=== PATIENT | female | born 2000 | race Caucasian/White ===

== ENCOUNTER 2020-02-01 07:47 | Emergency (ER) | payer SELFPAY ==
--- NOTE | ~2020-02-01 | US_ITS ---
EXAMINATION: US abdomen limited DATE: 02/01/2020 08:54 INDICATION: Epigastric abdominal pain TECHNIQUE: Multiple grayscale and Doppler ultrasound images of the abdomen were obtained. COMPARISON: None available FINDINGS: The head, body, and tail of the pancreas are normal. The liver is normal with normal echoge nicity and echotexture. No surface nodularity. Normal hepatopetal flow in the main portal vein. The g allbladder is normal with no abnormal wall thickening, pericholecystic fluid or stones. The normal co mmon bile duct measures 2 mm. There was no sonographic Perez sign. IMPRESSION: 1. Normal sonographic study of the gallbladder. Reviewed, dictated and finalized at location A.
[2020-02-01 07:51] VITALS: BP 125/93; PULSE 102; RESP 18; TEMP 36.2; O2SAT 98
--- NOTE | 2020-02-01 08:12 | ED.ABDPAIN ---
HPI - Abdominal Pain General Chief Complaint: Abdominal Pain Stated Complaint: abd pain Time Seen by Provider: 02/01/20 08:06 Source: patient and family Mode of arrival: ambulatory Limitations: no limitations History of Present Illness HPI narrative: Patient presents to the ED with her mother for epigastric pain for 4 days. The pain spikes high and then settles down and spikes again. She has had no fever with. She has severe nausea but no vomiting. She has had no diarrhea or constipation. She has not had an illness like this before. Her mother had gallbladder disease and had hers removed. The pain is currently 7 out of 10. 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 Surgical history includes tonsillectomy, adenoidectomy, and bilateral myringotomy tubes. She takes Septra for her acne. She has not had a period in months. She does not have an CAFE COOK. She does not smoke, drink alcohol, or do drugs. MD elicited complaint: abdominal pain Pertinent past history: none Onset (ago): day(s) Pain Consistency: intermittent Location: epigastric Severity: severe Pain scale (0-10): 7 Quality: stabbing Radiation: none Migration to: no migration Exacerbating factors: nothing Relieving factors: nothing Associated symptoms: nausea Treatments prior to arrival: NSAIDs Related Data Patient : No Home Medications Medication Instructions Recorded Confirmed sulfamethoxazole-trimethoprim 160 - 800 tablet PO DAILY 02/01/20 [Bactrim DS] Allergies Allergy/AdvReac Type Severity Reaction Status Date / Time No Known Allergies Allergy Verified 08/08/17 18:08 Review of Systems Review of Systems: Narrative: CONSTITUTIONAL: Denies fever, chills, or sweats. EYES: Denies visual changes, redness, or discharge. ENT: Denies rhinorrhea, congestion, sore throat, or otalgia. CARDIOVASCULAR: Denies chest pain, palpitations, or edema. RESPIRATORY: Denies cough or dyspnea. GASTROINTESTINAL: She has abdominal pain, nausea, but not vomiting, or diarrhea. GENITOURINARY: Denies dysuria or hematuria. SKIN: Denies rash or itching. MUSCULOSKELETAL: Denies back pain, joint pain, or myalgia. NEUROLOGIC: Denies headache, numbness, or weakness. All systems reviewed & are unremarkable except as noted in HPI and below PMFSH Past Medical History Medical History Acne Irregular menses Surgical History Surgical History (Updated 02/01/20 @ 08:16 by Mariela Davis MD) History of adenoidectomy History of myringotomy History of tonsillectomy Social History Social History (Updated 02/01/20 @ 08:16 by Mariela Davis MD) Smoking status: Never smoker Alcohol intake: never Substance use: never Gender identity (if verbalized by the patient): Female Exam Narrative: Exam Narrative: GENERAL: Well-appearing, well-nourished, and in no acute distress. HEAD: Normocephalic, atraumatic. EYES: PERRLA and EOMI. ENT: Nares clear, no rhinorrhea or epistaxis. Mucous membranes moist. NECK: Supple. CHEST: Clear to auscultation. No respiratory distress. HEART: Regular rate and rhythm. No murmur heard. Normal peripheral pulses. ABDOMEN: Soft, nontender, nondistended, normal active bowel sounds. EXTREMITIES: Normal range of motion. No edema. SKIN: Warm, dry, small amount of facial acne. NEURO: No focal deficits. Alert and oriented x3. PSYCH: Normal mood and affect. Course Reevaluation(s) Reevaluation #1: The patient's pain is down to 6 out of 10. I told her that her ultrasound of the gallbladder came back normal. She could follow-up with Dr. Ovalle. I offered admission. The mom is worried that does not have insurance to cover either the admission or follow-up visit. I told him I was comfortable with either but they had to decide. Date: 02/01/20 Time: 09:25 Reevaluation #2: Went back in the room to see whether or not wanted admission. She
[2020-02-01 08:18] LABS: Basophils Percent Auto 0.4 % (0.2-1.2); Eosinophils Absolute Auto 0.1 K/mm3 (0-0.3); Eosinophils Percent Auto 1.1 % (0-4.4); Hematocrit 40.8 % (37.0-47.0); Hemoglobin 14.3 g/dL (12.0-15.0); Immature Granulocyte Absolute 0.03 K/mm3 (0.00-0.031); Immature Granulocyte Percent A 0.5 % (0-0.5); Lymphocytes Absolute Auto 1.27 K/mm3 (0.9-3.2); Lymphocytes Percent Auto 23.2 % (18.3-44.2); Mean Corpuscular Volume 85.7 fl (80-100); Mean Platelet Volume 10.5 fl (7.4-10.4); Monocytes Absolute Auto 0.5 K/mm3 (0.1-0.6); Monocytes Percent Auto 9.3 % (2.6-8.5); Neutrophils Absolute Auto 3.6 K/mm3 (1.3-6.7); Neutrophils Percent Auto 65.5 % (45.5-73.1); Platelet Count Result 228 k/mm3 (150-375); Red Blood Count 4.76 M/mm3 (4.2-5.4); White Blood Count 5.5 K/mm3 (4.5-10.0)
[2020-02-01] MEDS: SODIUM CHLORIDE 0.9% IV 1,000 ML 999 ML IV CONT (08:19)
[2020-02-01] MEDS: ONDANSETRON INJ 4 MG/2 ML VIAL IV PUSH (08:19)
[2020-02-01] MEDS: MORPHINE SULFATE 2 MG/ML INJ IV PUSH (08:19)
[2020-02-01 08:28] LABS: Alanine Aminotransferase 100 U/L (4-35); Albumin Level 4.2 g/dL (3.5-5.1); Alkaline Phosphatase 108 U/L (38-126); Anion Gap 7 mmol/L (8-16); Aspartate Amino Transferase 71 U/L (14-36); Bilirubin,Total 0.6 mg/dL (0.2-1.3); Blood Urea Nitrogen 16 mg/dL (7-17); Calcium 8.4 mg/dL (8.4-10.2); Carbon Dioxide 23 mmol/L (22-30); Chloride 106 mmol/L (98-107); Estimated Glomerular Filt Rate > 60; Glucose 101 mg/dL (65-105); Lipase 39 U/L (23-300); Potassium 3.5 mmol/L (3.4-5.0); Sodium 136 mmol/L (137-145)
[2020-02-01 08:37] LABS: Add Urine Microscopic? YES; Appearance Urine Clear (Clear); Bacteria Urine 1+ /hpf; Bilirubin Urine 1+ (Negative); Blood Urine Negative (Negative); Color Urine Yellow (Yellow); Glucose Urine UA Negative (Negative); Ketones Urine Negative (Negative); Leukocyte Esterase Ur 1+ LEU/UL (Negative); Mucus Urine Heavy /lpf; Nitrate Urine Negative (Negative); Protein Urine 1+ mg/dL (Negative); Squamous Epithelial Cell Urine Many /hpf (Few)
[2020-02-01 08:45] LABS: Specific Grav Ur 1.033 (1.001-1.035)
[2020-02-01] MEDS: MORPHINE SULFATE 4 MG/ML INJ IV PUSH (09:17)
[2020-02-01 09:30] VITALS: BP 126/71; PULSE 89; RESP 12; O2SAT 99
[2020-02-01 10:50] VITALS: BP 124/66; PULSE 88; RESP 14; O2SAT 99
== END 2020-02-01 10:58 | disposition home or self-care (01) ==
PROVIDERS: Emergency Provider Emergency Medicine
DX: R79.89 Other specified abnormal findings of blood chemistry (principal); R10.13 Epigastric pain
CPT/HCPCS: 36415; 76705; 80053; 81001; 81025; 83690; 85025; 87086; 87088; 96361; 96374; 96375; 96376; 99284; J2270; J2405; J7030

== ENCOUNTER 2020-02-03 16:27 | Outpatient (CLI) | payer SELFPAY ==
[2020-02-03 17:39] LABS: Alanine Aminotransferase 225 U/L (4-35); Alkaline Phosphatase 99 U/L (38-126); Anion Gap 6 mmol/L (8-16); Aspartate Amino Transferase 149 U/L (14-36); Bilirubin,Total 0.3 mg/dL (0.2-1.3); Blood Urea Nitrogen 12 mg/dL (7-17); Calcium 8.5 mg/dL (8.4-10.2); Carbon Dioxide 25 mmol/L (22-30); Chloride 107 mmol/L (98-107); Estimated Glomerular Filt Rate > 60; Glucose 89 mg/dL (65-105); Potassium 3.7 mmol/L (3.4-5.0); Sodium 138 mmol/L (137-145)
== END 2020-02-03 16:28 | disposition home or self-care (01) ==
PROVIDERS: Visit Provider Internal Medicine Gastroenterology
DX: K82.9 Disease of gallbladder, unspecified (principal); R74.8 Abnormal levels of other serum enzymes
CPT/HCPCS: 36415; 80053

== ENCOUNTER 2021-08-14 16:01 | Outpatient (CLI) | payer OTHER, SELFPAY ==
--- NOTE | ~2021-08-14 | US_ITS ---
EXAMINATION: US pelvic complete DATE: 08/14/2021 16:39 INDICATION: Left ovarian cyst TECHNIQUE: Multiple transabdominal and endovaginal sonographic images of the pelvis were obtained. COMPARISON: None. FINDINGS: The uterus measures 6.6 x 4.6 x 3.8 cm. The endometrial complex measures 5 mm. The right ov erin measures 2.8 x 3.2 x 2.0 cm. The left ovary measures 2.9 x 2.2 x 2.3 cm. No left ovarian cyst is identified. There is normal vascular flow in the ovaries. There is no free fluid in the pelvis. IMPRESSION: 1. Unremarkable pelvic ultrasound. Reviewed, dictated and finalized at location D. NDS SUPERVISOR
== END 2021-08-14 16:02 | disposition home or self-care (01) ==
LOC: ANHIMG 16:04
PROVIDERS: PCP Registered Nurse; Visit Provider Registered Nurse
DX: N83.202 Unspecified ovarian cyst, left side (principal)
CPT/HCPCS: 76856

== ENCOUNTER 2021-10-18 13:54 | Outpatient (CLI) | payer OTHER, SELFPAY ==
[2021-10-18 14:46] LABS: Alanine Aminotransferase 26 U/L (4-35); Albumin Level 4.4 g/dL (3.5-5.1); Alkaline Phosphatase 73 U/L (38-126); Anion Gap 6 mmol/L (8-16); Aspartate Amino Transferase 26 U/L (14-36); Bilirubin,Total 0.3 mg/dL (0.2-1.3); Blood Urea Nitrogen 16 mg/dL (7-17); Calcium 9.1 mg/dL (8.4-10.2); Carbon Dioxide 27 mmol/L (22-30); Chloride 105 mmol/L (98-107); Glucose 82 mg/dL (65-110); Sodium 138 mmol/L (137-145)
[2021-10-18 15:33] LABS: Estimated Glomerular Filt Rate > 60
[2021-10-18 16:31] LABS: Hepatitis B Surface Antigen Negative (Negative); Iron 146 ug/dL (37-170)
[2021-10-18 16:37] LABS: HAV RESULT Negative (Negative); Hepatitis B Core IgM Result Negative (Negative)
[2021-10-18 16:49] LABS: Hepatitis C Virus Antibody Negative (Negative)
[2021-10-18 16:54] LABS: Percent Iron Saturation 43 % (20-50)
[2021-10-21 10:47] LABS: Tissue Transglutaminase IgG Ab <1.0 U/mL (<15.0)
[2021-10-21 12:41] LABS: Tissue Transglutaminase IgA Ab <1.0 U/mL (<15.0)
[2021-10-22 08:24] LABS: Ceruloplasmin 28 mg/dL (18-53)
[2021-10-23 21:20] LABS: Mitochondrial (M2) Ab (IgG) <=20.0 U (<=20.0)
== END 2021-10-18 13:55 | disposition home or self-care (01) ==
LOC: ANHLAB 13:56
PROVIDERS: PCP Registered Nurse; Visit Provider Internal Medicine Gastroenterology
DX: R74.8 Abnormal levels of other serum enzymes (principal); R10.11 Right upper quadrant pain
CPT/HCPCS: 36415; 80053; 80074; 82104; 82390; 82728; 83516; 83520; 83540; 83550; 86038

== ENCOUNTER 2021-10-26 01:48 | Day surgery (SDC) | payer OTHER, SELFPAY ==
[2021-10-24 14:13] VITALS: BMI 41.1
[2021-10-26 09:33] VITALS: BP 117/78; PULSE 82; RESP 20; TEMP 36.2; O2SAT 100; BMI 42.7
[2021-10-26] MEDS: LACTATED RINGERS 1,000 ML 150 ML IV CONT (09:44)
--- NOTE | 2021-10-26 09:47 | P.PNAN_ITS ---
Anes - Initial Pre Proc Eval Procedure: Operation Date: 10/26/21 10:30 Proposed Procedures p Esophagogastroduodenoscopy - Aly Muñoz MD Date/Time: 10/26/21 09:47 Surgeon: Aly Muñoz MD Pre Op Diagnosis: RUQP Patient Data Age: 21 Gender: F Height: 1.57 m Weight: 106 kg Last Vital Signs Temp 36.2 C L 10/26/21 09:33 Pulse 82 10/26/21 09:33 Resp 20 10/26/21 09:33 BP 117/78 10/26/21 09:33 Pulse Ox 100 10/26/21 09:33 Allergies Allergy/AdvReac Type Severity Reaction Status Date / Time No Known Allergies Allergy Verified 10/26/21 09:32 Home Medications Medication Instructions Recorded Confirmed Type doxycycline hyclate 100 mg capsule 100 mg PO DAILY 10/18/21 10/24/21 History ergocalciferol (vitamin D2) 1,250 1,250 mcg PO WEEKLY 10/18/21 10/24/21 History mcg (50,000 unit) capsule spironolactone 100 mg tablet 100 mg PO DAILY 10/18/21 10/24/21 History Patient hx anesthesia problems: none Family hx anesthesia problems: none Results Review: All pre-operative results and documents have been reviewed as part of the pre-operative evaluation. [facility] Past Medical History Medical History Acne Elevated liver enzymes Epigastric pain Irregular menses Obese body habitus Obesity, morbid, BMI 40.0-49.9 RUQ pain Surgical History Surgical History History of adenoidectomy History of myringotomy History of tonsillectomy Social History Social History Smoking status: Never smoker Alcohol intake: never Substance use: never Substance use type: does not use Living arrangements: with family Gender identity (if verbalized by the patient): Female Spiritual care concerns: No Anes - Eval Final PreProcedure Day of Procedure 10/26/21 09:47 Patient weight: morbidly obese Heart: regular rate and rhythm Lungs: clear to auscultation Airway: Mallampati scale class II Neurological: alert and oriented Last oral intake: >/= 8 hours ASA classification: III Emergent: no Anesthetic plan: proceed Anesthesia type and monitoring: general GIVS and standard monitoring Results Review: All pre-operative results and documents have been reviewed as part of the pre-operative evaluation. Informed Consent: The patient's anesthetic plan and its attendant risks and benefits were discussed with the patient/family/POA. Questions were solicited and answers provided to the satisfaction of the patient/family/POA.
--- NOTE | 2021-10-26 10:08 | WPDHPUPDATE1 ---
History and Physical Update Update Date/Time: 10/26/21 10:08 History and Physical has been reviewed, including an updated exam of the patient. There are NO changes in the patient's condition. Risks, benefits, and alternatives have been discussed and questions answered. Patient agrees to proceed with procedure.
[2021-10-26 10:30] VITALS: BP 96/54; PULSE 77; RESP 20; O2SAT 100
[2021-10-26 10:40] VITALS: BP 103/63; PULSE 77; RESP 20; O2SAT 100
[2021-10-26 10:50] VITALS: BP 99/64; PULSE 81; RESP 21; O2SAT 100
== END 2021-10-26 10:58 | disposition home or self-care (01) ==
PROVIDERS: PCP Registered Nurse; Visit Provider Internal Medicine Gastroenterology
PROC: 0DJ08ZZ Inspection of Upper Intestinal Tract, Via Natural or Artificial Opening Endoscopic (ICD-10-PCS; CPT 43235; principal; 2021-10-26 10:30)
DX: K29.70 Gastritis, unspecified, without bleeding (principal); E66.01 Morbid (severe) obesity due to excess calories; Z68.41 Body mass index [BMI] 40.0-44.9, adult
CPT/HCPCS: 43239; 87081; 88305; J2704; J7120

== ENCOUNTER 2022-09-26 16:57 | Emergency (ER) | payer OTHER, SELFPAY ==
[2022-09-26 17:05] VITALS: BP 134/78; PULSE 100; RESP 16; TEMP 36.5; O2SAT 100
--- NOTE | 2022-09-26 17:32 | ED.BACK ---
HPI - Back Pain/Injury General Chief Complaint: Back Pain/Injury Stated Complaint: lower back pain Time Seen by Provider: 09/26/22 17:10 Source: patient Mode of arrival: ambulatory Limitations: no limitations History of Present Illness HPI Narrative: Patient is a 22-year-old female that presents with low back pain for 3 days. States it is a tight spasming feeling across low back. Denies any pain shooting to legs. Denies any loss of bowel or bladder. Patient has tried ibuprofen and heat with no relief. Related Data Home Medications Medication Instructions Recorded Confirmed doxycycline hyclate 100 mg capsule 100 mg PO DAILY 10/18/21 10/24/21 ergocalciferol (vitamin D2) 1,250 1,250 mcg PO WEEKLY 10/18/21 10/24/21 mcg (50,000 unit) capsule spironolactone 100 mg tablet 100 mg PO DAILY 10/18/21 10/24/21 Allergies Allergy/AdvReac Type Severity Reaction Status Date / Time No Known Allergies Allergy Verified 10/26/21 09:32 Review of Systems Review of Systems: All systems reviewed & are unremarkable except as noted in HPI and below Constitutional: Constitutional: Denies body ache(s), Denies fever(s), Denies headache(s), Denies malaise and Denies weakness Eyes: Eyes: Denies loss of vision ENT: Denies otalgia, Denies headache(s), Denies nasal discharge, Denies sinus pain and Denies sore throat Cardiovascular: Cardiovascular: Denies chest pain, Denies irregular heart rhythm and Denies dyspnea Respiratory: Respiratory: Denies dyspnea Gastrointestinal: Gastrointestinal: Denies abdominal pain, Denies melena, Denies hematochezia, Denies diarrhea, Denies nausea and Denies vomiting Musculoskeletal: Musculoskeletal: Reports back pain, Denies myalgias and Denies arthralgias Integumentary/Breasts: Skin/Breast: Denies pruritus and Denies rash Neurologic: Denies headache(s), Denies loss of vision and Denies weakness Psychiatric: Psychiatric: Reports no additional psychiatric complaints PMFSH Past Medical History Medical History Acne Elevated liver enzymes Epigastric pain Irregular menses Obese body habitus Obesity, morbid, BMI 40.0-49.9 RUQ pain Surgical History Surgical History History of adenoidectomy History of myringotomy History of tonsillectomy Social History Social History Smoking status: Never smoker Alcohol intake: never Substance use: never Substance use type: does not use Living arrangements: with family Gender identity (if verbalized by the patient): Female Spiritual care concerns: No Comments At time of signature, agree with nursing past medical, surgical, social and family history. There is no relevant family history pertinent to the presenting complaint. Exam Const: General: cooperative, healthy appearing, comfortable, no acute distress and well nourished Nutritional Appearance: well nourished Orientation/consciousness: patient oriented x3 Limitations: no limitations HENMT: Head: normal to inspection, normocephalic and atraumatic Ears: external ears normal Face/Nose/Sinus: Normal external nose present, normal facial exam and face symmetric Face and sinus: normal facial exam and face symmetric Mouth: Yes lip normal Eyes: General: appearance normal, both eyes and all related structures Alignment and Position: alignment normal and position normal Periorbital: periorbital findings normal Eyelids: eyelids normal Pupils: Equal, round and reactive pupils present EOM: EOMs intact bilaterally Neck: Neck: normal visual inspection and full ROM Chest: Chest palpation & inspection: normal inspection of the chest Resp: Effort & Inspection: normal respiratory effort and able to speak in complete sentences Auscultation: clear to auscultation bilaterally Cardio: Rate: regular rate Rhythm: regular rhythm Heart sounds: S
== END 2022-09-26 17:55 | disposition home or self-care (01) ==
PROVIDERS: Emergency Provider Nurse Practitioner Family; PCP Registered Nurse
DX: S39.012A Strain of muscle, fascia and tendon of lower back, initial encounter (principal); X58.XXXA Exposure to other specified factors, initial encounter; E66.01 Morbid (severe) obesity due to excess calories; Z68.42 Body mass index [BMI] 45.0-49.9, adult
CPT/HCPCS: 99213; G0463

== ENCOUNTER 2023-04-26 09:32 | Emergency (ER) | payer OTHER, SELFPAY ==
[2023-04-26 09:40] VITALS: BP 123/87; PULSE 94; RESP 16; TEMP 36.5; O2SAT 100
--- NOTE | 2023-04-26 10:12 | ED.EAR ---
HPI - Ear Problem General Chief complaint: Ear Stated complaint: Left Ear Irritation Time Seen by Provider: 04/26/23 10:06 Source: patient and RN notes reviewed Mode of arrival: ambulatory Limitations: no limitations History of Present Illness HPI Narrative: Patient presents today complaining of left ear muffling x 3-4 days with intermittent pain. Patient states when she moves her head around she can get some hearing back for short periods of time. She has been taking ibuprofen and TheraFlu with some relief. States she is just getting over a cold. Related Data Home Medications Medication Instructions Recorded Confirmed ergocalciferol (vitamin D2) 1,250 1,250 mcg PO WEEKLY 10/18/21 10/24/21 mcg (50,000 unit) capsule spironolactone 100 mg tablet 100 mg PO DAILY 10/18/21 10/24/21 benzoyl peroxide 5 % topical topical 04/26/23 cleanser drospirenone 3 mg-ethinyl tablet 04/26/23 estradiol 0.02 mg tablet (Carmelita (28)) spironolactone 100 mg tablet mg 04/26/23 Allergies Allergy/AdvReac Type Severity Reaction Status Date / Time No Known Allergies Allergy Verified 04/26/23 09:54 Review of Systems Review of Systems: CONSTITUTIONAL: Denies body aches, fever, chills, or sweats. EYES: Denies visual changes, redness, or discharge. ENT: Denies rhinorrhea, congestion, sore throat. + left ear muffling and intermittent pain CARDIOVASCULAR: Denies chest pain, palpitations, or edema. RESPIRATORY: Denies cough or dyspnea. GASTROINTESTINAL: Denies abdominal pain, nausea, vomiting, or diarrhea. GENITOURINARY: Denies dysuria or hematuria. SKIN: Denies rash, itching, or wounds. MUSCULOSKELETAL: Denies back pain, joint pain, or myalgia. NEUROLOGIC: Denies headache, numbness, tingling, or weakness. PSYCH: Denies depression or anxiety. [facility] Past Medical History Medical History Acne Elevated liver enzymes Epigastric pain Irregular menses Obese body habitus Obesity, morbid, BMI 40.0-49.9 RUQ pain Surgical History Surgical History History of adenoidectomy History of myringotomy History of tonsillectomy Social History Social History Smoking status: Never smoker Alcohol intake: never Substance use: never Substance use type: does not use Living arrangements: with family Gender identity (if verbalized by the patient): Female Spiritual care concerns: No Comments At time of signature, I have reviewed and agree with nursing past medical, surgical, social and family history unless otherwise noted. Please see nursing chart for further information. There is no relevant family history pertinent to the presenting complaint Exam Narrative: GENERAL: Well-appearing, well-nourished, and in no acute distress. HEAD: Normocephalic, atraumatic. EYES: EOMI. No redness or drainage. Conjunctivae normal. ENT: Mucous membranes pink and moist. Nares clear. No rhinorrhea. Bilateral TMs are erythematous and bulging. NECK: Normal AROM. CHEST: No respiratory distress. EXTREMITIES: Normal range of motion. No edema. SKIN: Warm, dry, no rash. Capillary refill normal. Normal skin turgor. NEURO: No focal deficits. Alert and oriented x3. Gait steady. PSYCH: Normal affect. No signs of depression or anxiety. Course Course Level of Care: Express Care Visit Vital Signs Vital signs: Vital Signs Temperature 97.7 F 04/26/23 09:40 Pulse Rate 94 04/26/23 09:40 Respiratory Rate 16 04/26/23 09:40 Blood Pressure 123/87 04/26/23 09:40 Pulse Oximetry 100 04/26/23 09:40 Oxygen Delivery Room Air 04/26/23 09:40 Temperature 97.7 F 04/26/23 09:40 Pulse Rate 94 04/26/23 09:40 Respiratory Rate 16 04/26/23 09:40 Blood Pressure 123/87 04/26/23 09:40 Pulse Oximetry 100 04/26/23 09:40 Oxygen Delivery
== END 2023-04-26 10:23 | disposition home or self-care (01) ==
PROVIDERS: Emergency Provider Nurse Practitioner; PCP Registered Nurse
DX: H65.93 Unspecified nonsuppurative otitis media, bilateral (principal)
CPT/HCPCS: 99213; G0463

== ENCOUNTER 2023-07-11 08:49 | Emergency (ER) | payer OTHER, SELFPAY ==
[2023-07-11 09:00] VITALS: BP 122/81; PULSE 98; RESP 16; TEMP 37.6; O2SAT 98
--- NOTE | 2023-07-11 09:27 | ED.URI ---
HPI - URI/Sore Throat General Chief Complaint: Upper Respiratory Infection Stated Complaint: congestion,cough,headache Time Seen by Provider: 07/11/23 09:27 Source: patient Mode of arrival: ambulatory Limitations: no limitations History of Present Illness HPI Narrative: 22-year-old female presents with complaint nasal congestion, cough, postnasal drainage , sinus pressure for over week. Reports that drainage has turned yellow. No chest pain or shortness of breath. Taking flare through without relief of symptoms. afebrile. All systems reviewed and negative except as noted above. Related Data Home Medications Medication Instructions Recorded Confirmed ergocalciferol (vitamin D2) 1,250 1,250 mcg PO WEEKLY 10/18/21 10/24/21 mcg (50,000 unit) capsule spironolactone 100 mg tablet 100 mg PO DAILY 10/18/21 10/24/21 benzoyl peroxide 5 % topical topical 04/26/23 cleanser drospirenone 3 mg-ethinyl tablet 04/26/23 estradiol 0.02 mg tablet (Carmelita (28)) Allergies Allergy/AdvReac Type Severity Reaction Status Date / Time No Known Allergies Allergy Verified 07/11/23 09:27 Review of Systems Review of Systems: CONSTITUTIONAL: Denies fever, chills, or sweats. EYES: Denies visual changes, redness, or discharge. ENT: Reports rhinorrhea, congestion, sore throat. Denies otalgia. CARDIOVASCULAR: Denies chest pain, palpitations, or edema. RESPIRATORY: reports cough. Denies dyspnea. GASTROINTESTINAL: Denies abdominal pain, nausea, vomiting, or diarrhea. GENITOURINARY: Denies dysuria or hematuria. SKIN: Denies rash or itching. MUSCULOSKELETAL: Denies back pain, joint pain, or myalgia. NEUROLOGIC: Denies headache, numbness, or weakness. PSYCHIATRIC: Denies anxiety or depression. All other systems reviewed are negative, except as documented in HPI. [facility] Past Medical History Medical History Acne Elevated liver enzymes Epigastric pain Irregular menses Obese body habitus Obesity, morbid, BMI 40.0-49.9 RUQ pain Surgical History Surgical History History of adenoidectomy History of myringotomy History of tonsillectomy Social History Social History Smoking status: Never smoker Alcohol intake: never Substance use: never Substance use type: does not use Living arrangements: with family Gender identity (if verbalized by the patient): Female Spiritual care concerns: No Comments At time of signature, agree with nursing past medical, surgical, social and family history. There is no relevant family history pertinent to the presenting complaint. Exam Narrative: GENERAL: This is a well-nourished, well-developed patient, in no apparent distress. HEAD: normocephalic, atraumatic. EYES: PERRL. Sclera clear/white. Vision is grossly intact. EARS: External ears normal, auditory canals clear and without drainage, fluid bilateral TMs with air bubbles, erythema bilaterally. No perforation bilaterally. NOSE: External nose normal with Clear nasal drainage, erythema and swelling to bilateral nares. THROAT: Mucous membranes moist, Mild Erythema to posterior pharynx with postnasal drainage. NECK: Neck supple, non-tender without lymphadenopathy, masses or thyromegaly. CARDIOVASCULAR: Regular rate and rhythm without murmurs, gallops, or rubs. RESPIRATORY: Clear to auscultation. Breath sounds equal bilaterally. No wheezes, rales, or rhonchi. SKIN: warm, Dry, intact with no suspicious lesions or rash, good texture and turgor. NEURO: awake, alert, and oriented to person, place and time. There were no obvious focal neurologic abnormalities. EXTREMITIES: No joint tenderness, effusion, or edema noted. Course Course Level of Care: Express Care Visit Vital Signs Vital signs: Vital Signs Temperature 37.6 C 07/11
== END 2023-07-11 09:38 | disposition home or self-care (01) ==
PROVIDERS: Emergency Provider Nurse Practitioner Family; PCP Registered Nurse
DX: J01.90 Acute sinusitis, unspecified (principal); H65.03 Acute serous otitis media, bilateral; E66.01 Morbid (severe) obesity due to excess calories; Z68.41 Body mass index [BMI] 40.0-44.9, adult
CPT/HCPCS: 99213; G0463

== ENCOUNTER 2024-03-09 14:55 | Emergency (ER) | payer OTHER, SELFPAY ==
--- NOTE | 2024-03-09 14:59 | ED.LOWEXIN ---
HPI - Extremity Injury (Lower) General Chief Complaint: Extremity Problem,Nontraumatic Stated Complaint: right foot pain Time Seen by Provider: 03/09/24 15:18 Source: patient and RN notes reviewed Mode of arrival: ambulatory Limitations: no limitations History of Present Illness HPI Narrative: 23-year-old female chronic right dorsal. She for about a year she has had pain at the base ankle/mid foot that would last about a day and would go away this happened intermittently. She reports over the last week she has had pain for 7 days. She has been using eyes, wrapping it, rest. She has taken ibuprofen twice. Related Data Home Medications Medication Instructions Recorded Confirmed drospirenone 3 mg-ethinyl 1 tablet PO DAILY 04/26/23 03/09/24 estradiol 0.02 mg tablet (Carmelita (28)) Allergies Allergy/AdvReac Type Severity Reaction Status Date / Time No Known Allergies Allergy Verified 03/09/24 15:04 Review of Systems Review of Systems: CONSTITUTIONAL: Denies malaise, chills, sweats, or fever. SKIN: Denies rash or itching, open skin, laceration, abrasion, redness, warmth MUSCULOSKELETAL: Reports right foot pain NEUROLOGIC: Denies numbness, weakness All systems reviewed & are unremarkable except as noted in HPI and below PMFSH Past Medical History Medical History Acne Elevated liver enzymes Epigastric pain Irregular menses Obese body habitus Obesity, morbid, BMI 40.0-49.9 RUQ pain Surgical History Surgical History History of adenoidectomy History of myringotomy History of tonsillectomy Social History Social History Smoking status: Never smoker Alcohol intake: never Substance use: never Substance use type: does not use Living arrangements: with family Gender identity (if verbalized by the patient): Female Spiritual care concerns: No Comments At time of signature, agree with nursing past medical, surgical, social and family history. There is no relevant family history pertinent to the presenting complaint Exam Narrative: GENERAL: Well-appearing, well-nourished, and in no acute distress. HEAD: Normocephalic, atraumatic. EYES: PERRLA, conjunctivae clear NECK: Supple. CHEST: Speaks in full sentences. No respiratory distress. HEART: Regular rate and rhythm. Normal and equal peripheral pulses. EXTREMITIES: Right foot, ankle, digits have grossly normal strength and sensation, grossly normal range of motion. No edema or ecchymosis. No open wounds, no skin tenting, no devitalized tissue or atrophy, no trophic changes, no obvious deformity, alignment normal, nearby joints and structures intact. Distal pulses palpable and equal bilaterally, skin warm, dry, pink. Capillary refill less than 3 seconds. SKIN: Warm, dry, no rash. NEURO: Alert and oriented x3. PSYCH: Normal mood and affect Course Course Emergency Course: Patient is aware of diagnosis, understands and agrees to treatment plan. Anticipatory guidance given. Patient agrees to follow-up as directed and is aware of reasons to seek care at the emergency department. Portions of this record may have been created with voice recognition software Level of Care: Express Care Visit Vital Signs Vital signs: Reviewed. MDM - Extremity Injury (Lower) MDM Narrative Medical decision making narrative: Patients injury and pain is consistent with musculoskeletal etiology. No signs of neurological or vascular compromise on exam. Compartments and tissues are soft without signs of compartment syndrome. Pain is felt appropriate for further evaluation on an outpatient basis. Critical Care Time Critical Care Time Critical Care Time: No Discharge Plan Discharge Clinical Impression: Chronic foot pain Patient Disposition: Home, Self-Care Condition: Stable
[2024-03-09 15:02] VITALS: BP 138/87; PULSE 100; RESP 16; TEMP 36.9; O2SAT 100
== END 2024-03-09 15:40 | disposition home or self-care (01) ==
PROVIDERS: Emergency Provider Nurse Practitioner; PCP Registered Nurse
DX: M79.671 Pain in right foot (principal); G89.29 Other chronic pain
CPT/HCPCS: 99213; G0463

== ENCOUNTER 2024-04-02 19:17 | Emergency (ER) | payer OTHER, SELFPAY ==
[2024-04-02 19:24] VITALS: BP 131/80; PULSE 90; RESP 16; TEMP 36.9; O2SAT 99
--- NOTE | 2024-04-02 19:56 | ED.SKABFB ---
HPI - Skin/Abscess/Foreign Bdy General Chief complaint: Extremity Injury, Lower Stated complaint: right big toe issue Time Seen by Provider: 04/02/24 19:50 Source: patient and RN notes reviewed Mode of arrival: ambulatory Limitations: dementia History of Present Illness HPI narrative: 23-year-old female presents with concern for 2 week history of redness, tenderness, swelling around the nail bed of the 1st digit of her right foot. Reports she has tried soaking in warm water and Epsom salts, tried to cut back a possible ingrown toenail without relief. Reports occasional purulent drainage from the area. MD complaint: other (Redness) Related Data Home Medications Medication Instructions Recorded Confirmed drospirenone 3 mg-ethinyl 1 tablet PO DAILY 04/26/23 04/02/24 estradiol 0.02 mg tablet (Carmelita (28)) Allergies Allergy/AdvReac Type Severity Reaction Status Date / Time No Known Allergies Allergy Verified 04/02/24 19:36 Review of Systems Review of Systems: CONSTITUTIONAL: Denies malaise, chills, sweats, or fever. EYES: Denies redness, or discharge. ENT: Denies rhinorrhea, congestion, swollen lips, swollen tongue CARDIOVASCULAR: Denies chest pain, palpitations, or edema. RESPIRATORY: Denies cough or dyspnea. GASTROINTESTINAL: Denies abdominal pain, nausea, vomiting SKIN: Reports redness, swelling, tenderness with occasional drainage around the nail bed of the 1st digit of the right foot. Denies vesicles, bullae, numbness, pain beyond proportion MUSCULOSKELETAL: Denies joint pain or myalgia. NEUROLOGIC: Denies headache. All systems reviewed & are unremarkable except as noted in HPI and below PMFSH Past Medical History Medical History Acne Elevated liver enzymes Epigastric pain Irregular menses Obese body habitus Obesity, morbid, BMI 40.0-49.9 RUQ pain Surgical History Surgical History History of adenoidectomy History of myringotomy History of tonsillectomy Social History Social History Smoking status: Never smoker Alcohol intake: never Substance use: never Substance use type: does not use Living arrangements: with family Gender identity (if verbalized by the patient): Female Spiritual care concerns: No Comments At time of signature, agree with nursing past medical, surgical, social and family history. There is no relevant family history pertinent to the presenting complaint Exam Narrative: GENERAL: Well-appearing, well-nourished, and in no acute distress. HEAD: Normocephalic, atraumatic. EYES: PERRLA, conjunctivae clear ENT: Mucous membranes moist. NECK: Supple. No lymphadenopathy CHEST: Clear to auscultation. No respiratory distress. HEART: Regular rate and rhythm. SKIN: Warm, dry. Erythema, induration, tenderness, warmth with sharp margins noted around the lateral nail bed of the 1st digit of the right foot. No vesicles, bullae, necrosis, ecchymosis, crepitus noted. NEURO: Alert and oriented x3. PSYCH: Normal mood and affect Course Course Emergency Course: Patient is aware of diagnosis, understands and agrees to treatment plan. Anticipatory guidance given. Patient agrees to follow-up as directed and is aware of reasons to seek care at the emergency department. Portions of this record may have been created with voice recognition software Level of Care: Express Care Visit Vital Signs Vital signs: Vital Signs Temperature 98.5 F 04/02/24 19:24 Pulse Rate 90 04/02/24 19:24 Respiratory Rate 16 04/02/24 19:24 Blood Pressure 131/80 04/02/24 19:24 Pulse Oximetry 99 04/02/24 19:24 Oxygen Delivery Room Air 04/02/24 19:24 Temperature 98.5 F 04/02/24 19:24 Pulse Rate 90 04/02/24 19:24 Respiratory Rate 16 04/02/24 19:24 Blood Pressure 131/80 04/02/24
== END 2024-04-02 20:02 | disposition home or self-care (01) ==
PROVIDERS: Emergency Provider Nurse Practitioner; PCP Registered Nurse
DX: L03.031 Cellulitis of right toe (principal)
CPT/HCPCS: 99213; G0463

== ENCOUNTER 2025-02-22 09:23 | Emergency (ER) | payer OTHER, SELFPAY ==
--- OUTSIDE RECORDS SUMMARY | 1999-10-09 09:30 | XMS_ITS | Continuity of Care Document ---
Author Organization [facility] Address [address] [place] [address] Phone Care Team Providers Care Awning Craftsman Name Role Phone Celine Butcher Unavailable Unavailable Advance Directives Directive Yes / No Effective Date File Name No Information Encounters Encounter Description Practice Location Reason(s) For Visit Diagnoses Date Provider Providers Copied on Encounter [facility], [id number] [place] [address] [address], [place], [place], [id number], [place] tel:[phone] [facility] No Information Sep-2 5-200 0 Guadalupe Berger. [address] [facility] , [address], [place], [address], [place]. tel:[phone] Family History Family Member Type Diagnosis Age At Onset No Information Payers Payer name Insurance type Covered democrat ID Authoriza tion(s) Medicaid [facility] [id number] Social History Type Description Quantity Date Captured Comments Sex Female Smoking Status No Information Chief Complaint And Reason For Visit No Information Reason For Referral Reason For Referral No Information History Of Present Illness Encounter Date Complaint History Of Prese nt Illness No Information Functional Status Date Functional Assessmen t No Information Instructions Date Instruction Additional Infor mation No Information Assessments Type Assessment Date No Information Patient Care Teams Name Effective Dates (start - stop) Status Members No Information
--- OUTSIDE RECORDS SUMMARY | 1999-10-09 09:30 | XMS_ITS | Continuity of Care Document ---
Author Organization [facility] Address [address] [place] [address] Phone Care Team Providers Care Oil Recovery Unit Operator Name Role Phone Celine Butcher Unavailable Unavailable Advance Directives Directive Yes / No Effective Date File Name No Information Encounters Encounter Description Practice Location Reason(s) For Visit Diagnoses Date Provider Providers Copied on Encounter [facility], [id number] [place] [address] [address], [place], [place], [id number], [place] tel:[phone] SEC [facility] No Information Sep-2 5-200 0 Guadalupe Berger. [address] [facility] , [address], [place], [address], [place]. tel:[phone] Family History Family Member Type Diagnosis Age At Onset No Information Payers Payer name Insurance type Covered green party ID Authoriza tion(s) Medicaid [facility] [id number] Social History Type Description Quantity Date Captured [...]
[2025-02-22] VITALS (7 sets, daily range): BP systolic 120–150; BP diastolic 87–110; PULSE 78–112; RESP 16–17; TEMP 36.5–36.6; O2SAT 98–100
--- NOTE | ~2025-02-22 | CT_ITS ---
EXAMINATION: CT brain wo con COMPARISON: None HISTORY: R sided FLORES with standing TECHNIQUE: Axial images were obtained through the brain without IV contrast. CT scan performed using dose optimization techniques including the following automated exposure control; adjustment of mA and/or kV; use of iterative reconstruction technique. Automatic exposure control was used to reduce radiation dose. Permanent radiation dose record is archived to PACS. FINDINGS: No acute infarct or parenchymal hemorrhage. No abnormal mass or mass effect. No midline shift. No extra-axial fluid collections. No hydrocephalus. . Mastoid air cells unremarkable. Sinuses and orbits unremarkable. No acute fracture. No significant facial or scalp soft tissue swelling evident. No radiopaque foreign body is seen. Impression: 1.No acute intracranial abnormality. Reviewed, dictated and finalized at location A. Impression: 1.No acute intracranial abnormality.
[2025-02-22 10:07] LABS: BEDSIDEPREGUCG Negative (Negative)
--- OUTSIDE RECORDS SUMMARY | 2025-02-22 10:22 | XMS_ITS | Clinical Summary ---
Author Organization [facility] [employer] Address [address] [address] Care Team Providers Care Practice Support Specialist Name Role Phone Brandy Cordon DRAY TRUCK DRIVER-BANANA EXPERT Primary Care Pro vider Source Comments [facility],non-owned Affiliates and Associated Physician Practices is amultiple site organization consisting of ambulatory clinics and hospital sitesin [place], [place], [place] and [place]. This disclosure is being madepursuant to the Care Everywhere program and may not contain all information available regarding this patient. Last updated 18.[facility] [employer] Allergies No known active allergies Medications * Be aware that medications may not be up to date on this document. Alwaysverify current medications with the patient. tretinoin (Retin-A) 0.025 % creamIndications :Acne vulgaris Pea sized amount to entire face at night. 30 days supply. 45 g 5 2 Active clindamycin (Cleocin) 1 % lotionIndication s:Acne vulgaris Apply to affected area on face daily. 30 day supply. 60 mL 5 2 Active ketoconazole (Nizoral) 2 % shampooIndicatio ns:Other seborrheic dermatitis Apply to wet hair, leave on for 3 minutes, then rinse; three times weekly. 30 days supply 120 mL 5 3 Active Trifarotene (Aklief) 0.005 % CREAIndications: Acne vulgaris 1 applicator by Apply externally route at bedtime to entire face 45 g 3 Active Adapalene-Benzoy l Peroxide (Epiduo Forte) 0.3-2.5 %Indications:Acn e vulgaris 1 applicator by Apply externally route at bedtime to entire face 45 g 3 Active benzoyl peroxide 5 % washIndications: Acne vulgaris APPLY TOPICALLY TO AFFECTED AREA DAILY 236 mL 2 3 Active spironolactone (Aldactone) 100 MG tabletIndication s:Acne vulgaris Take 1 (one) tablet by mouth once daily 30 tablet 5 3 Active amoxicillin (Amoxil) 875 MG tablet Take 1 (one) tablet by mouth every 12 hours FOR 10 DAYS 4 Active mometasone (Elocon) 0.1 % ointmentIndicati ons:Rash and other nonspecific skin eruption Apply to itchy areas on body twice daily as needed up to 1 week. 30 days supply. 45 g 4 Active tacrolimus (Protopic) 0.1 % ointmentIndicati ons:Rash and other nonspecific skin eruption Apply to itchy areas two times daily. 30 days supply. 100 g 3 4 Active drospirenone-eth inyl estradiol (Carmelita) 3-0.02 MG tabletIndication s:Acne vulgaris Take 1 (one) tablet by mouth once daily 30 tablet 5 5 Active Active Problems Problem Noted Date Diagnosed Date Acne vulgaris 09/04/2021 Other seborrheic dermatitis 09/04/2021 Vitamin D deficiency 07/24/2021 Encounters Date Type Department Care Team Description 02/09/2025 Refill [facility] - Dermatology [address] [place] [phone] Juliana Blankenship MD MEDICATION REFILL 02/06/2025 Refill [facility] - [facility]ermatology [address] [place] [phone] Juliana Blankenship MD MEDICATION REFILL from Last 3 Months Immunizations Immunization Administration Dates Next Due INFLUENZA VACCINE 04/06/2021 Social History Tobacco Use Types Packs/Day Years Used Date Smoking Tobacco: Never Smokeless Tobacco: Never Tobacco Cessation:Counseling Given: Not Answered Comments Unknown Sex and Gender Information Value Date Recorded Sex Assigned at Female 09/04/2021 12:33 PM CDT 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 Gender Identity Female 09/04/2021 12:33 PM CDT Sexual Orientation Straight 09/04/2021 12 :33 PM CDT Plan of Treatment Health Maintenance Due Date Last Done Comments HIV SCREENING 2014 HPV VACCINE (1 - 3-dose series) 2014 CHLAMYDIA/GONORRHEA SCREENING 2015 HEPATITIS C SCREENING 07/20/2017 DTAP/TDAP/TD VACCINES (1 - Tdap) 2018 HEPATITIS B VACCINE (1 of 3 - 19+ 3-dose series) 2018 PAP SMEAR 2020 DEPRESSION SCREENING 06/16/2024 COVID-19 VACCINE (3 - 2024-2 6 season) 2025 02/23/2021, 02/02/2021 INFLUENZA VACCINE (#1) 2025 , 01/15/2020, 09/11/2016 ZOSTER VACCINE (1 of 2) 2049 HIB VACCINE Aged Out No longer eligi ble based on patient's age to complete this topic MENINGOCOCCAL (Group B) VACCINE SHARED DECISION-MAKING Aged Out No longer eligible based on patient's age to complete this topic MENINGOCOCCAL GROUPS A/C/Y/W VACCINE Aged Out No longer eligible b ased on patient's age to complete this topic PNEUMOCOCCAL VACCINE Aged Out No long er eligible based on patient's age to complete this topic Insurance [facility] Care Teams Practice Support Specialist Relationship Specialty Start Date End Date Brandy Cordon APRN-KANE [address] [place] [phone] PCP - General 11/01/21
--- OUTSIDE RECORDS SUMMARY | 2025-02-22 10:22 | XMS_ITS | Clinical Summary ---
Author Organization [facility] Care Team Providers Care Bunch Maker Name Role Phone Unavailable Primary Care Provider Unavailabl e Social History Tobacco Use Types Packs/Day Years Used Date Smoking Tobacco: Never Assessed Comments Unknown Sex and Gender Information Value Date Recorded Sex Assigned at Not on file Legal Sex Female 3:10 PM CDT Gender Identity Not on file Sexual Orientation Not on file Plan of Treatment Health Maintenance Due Date Last Done Comments Hepatitis C Virus (HCV) Screening 1999 SARS-COV-2 Immunization ( season) 2024 Influenza Immunization (#1) 2025 08/0 06/2019, 03/08/2019, 09/11/2016, Additional history exists Respiratory Syncytial Virus (RSV) Immunization (Adult) (1 - 1-dose 75+ series) 2074 Hepatitis B Immunization Completed 000, 1999, 1999, Additional history exists Pneumococcal Immunization Combined Aged Out 05/10/2003, 11/06/2000, 09/11/2000 No longer eligible based on patient's age to complete this topic Human Papillomavirus (HPV) Immunization Completed 10/17/2011, 06/14/2011, 04/12/2011 DTaP/Tdap/Td Immunization Discontinued 2011, 08/15/2004, 11/06/2000, Additional history exists TdaP Immunization Completed 11/12/2011 Meningococcal Immunization (ACWY) Completed 07/31/2015, 10/26/2009 Rotavirus Immunization Aged Out No lo nger eligible based on patient's age to complete this topic
[2025-02-22] MEDS: SODIUM CHLORIDE 0.9% IV 1,000 ML 999 ML IV CONT (10:36)
--- NOTE | 2025-02-22 10:36 | ED_ITS ---
HPI - Headache General Chief Complaint: Headache Stated Complaint: headache Time Seen by Provider: 02/22/25 09:52 Source: patient Mode of arrival: ambulatory Limitations: no limitations History of Present Illness HPI Narrative: Patient is a 24-year-old female who presents the ED with report of a headache. Patient reports having diffuse pain throughout the right side of her head since yesterday, worse with sitting upright or standing. She is able to find some relief with lying flat or leaning far forward. Tried taking ibuprofen yesterday without improvement. Denies history of frequent headaches or migraines. Has never had headache like this before. Denies any fall or injury. Denies significant photophobia or phonophobia. Does report nausea, denies vomiting. Denies vision changes. Also reports slight muffled sensation of right ear. Denies ear pain or drainage. Related Data Home Medications ?Medication ?Instructions ?Recorded ?Confirmed ?Last Taken ?Type drospirenone 3 mg-ethinyl 1 tablet PO DAILY 04/26/23 1 Unknown History estradiol 0.02 mg tablet (Carmelita (28)) Allergies Allergy/AdvReac Type Severity Reaction Status Date / Time No Known Allergies Allergy Verified 04/02/24 19:36 Review of Systems Review of Systems: All systems reviewed & are unremarkable except as noted in HPI. All systems reviewed & are unremarkable except as noted in HPI and below PMFSH Past Medical History Medical History Obesity, morbid, BMI 40.0-49.9 RUQ pain Obese body habitus Elevated liver enzymes Epigastric pain Irregular menses Acne Surgical History Surgical History History of myringotomy History of adenoidectomy History of tonsillectomy Social History Social History Smoking status: Never smoker Alcohol intake: never Substance use: never Substance use type: does not use Living arrangements: with family Gender identity (if verbalized by the patient): Female Spiritual care concerns: No Exam Narrative: GENERAL: Well appearing, morbidly obese with BMI 47.5, non-toxic, in no acute distress. HEAD: Normocephalic, atraumatic. EYES: PERRL/EOMI, conjunctiva clear, no nystagmus ENT: TMs clear bilaterally, no evidence of AOE/AOM NECK: Supple, normal ROM, no meningeal signs. RESPIRATORY: Airway patent, respirations nonlabored. Clear to auscultation bilaterally, no rales, rhonchi, wheezing. CARDIOVASCULAR: Regular rate and rhythm MUSCULOSKELETAL: Moves all extremities. No gross deformities. SKIN: Warm, dry, normal color. NEURO: A&O X3. Speech clear. Cranial nerves II-XII grossly intact. Steady gait. No ataxic movements. No focal deficits PSYCHIATRIC: Appropriate mood and affect. Normal interaction. Course Vital Signs Vital signs: Vital Signs Temperature 97.8 F 02/22/25 09:33 Pulse Rate 112 H 02/22/25 09:33 Respiratory Rate 17 02/22/25 09:33 Blood Pressure 150/110 H 02/22/25 09:33 Pulse Oximetry 99 02/22/25 09:33 Oxygen Delivery Room Air 02/22/25 09:33 Temperature 97.9 F 02/22/25 12:31 Pulse Rate 83 02/22/25 12:31 Respiratory Rate 16 02/22/25 12:31 Blood Pressure 128/87 02/22/25 12:31 Pulse Oximetry 98 02/22/25 12:31 Oxygen Delivery Room Air 02/22/25 09:33 MDM - Headache MDM Narrative Medical decision making narrative: Patient's headache was not sudden in onset or maximal in severity. There are no focal neurological deficits on exam. Subarachnoid hemorrhage is felt to be unlikely at this time. CT brain was obtained and without acute findings. There is no history of fever and neck is supple on evaluation without meningeal signs. Meningitis is felt to be unlikely. No traumatic history or signs of trauma on e valuation. No vision changes or ocular signs of acute glaucoma. Viral swabs obtained and negative Patient given migraine cocktail in addition to non-rebreather for possible cluster headache presentation. On re-evaluation, patient feeling improved. Still having some pain and nausea with sitting upright, but overall improved. Remains neurologically intact. Patient's headache is felt to be benign cephalgia and reasonable for further outpatient management. Advised patient to follow with PCP for further evaluation. Will prescribe Zofran for home. Patient given return precautions. Discharged in stable condition. Medical Records Attestation: I reviewed the patient's medical records. Lab Data Attestation: I reviewed the patient's lab results. Labs: Lab Results 02/22/25 02/22/25 Range/Units 09:54 10:23 POC Urine HCG, Qual Negative (Negative) Influenza A (RT-PCR) Negative (Negative) Influenza B (RT-PCR) Negative (Negative) RSV (RT-PCR) Negative (Negative) SARS-CoV-2 RNA (RT-PCR) Negative (Negative) Imaging Data Attestation: I personally reviewed and interpreted this imaging study as follows: Radiologist's impression: ITS Impressions Head CT 02/22/25 10:18 Impression: 1.No acute intracranial abnormality. Discharge Plan Discharge Clinical Impression: Migraine Qualifiers: Migraine type: unspecified Status migrainosus presence: without status migrainosus Intractability: not intractable Qualified Code(s): G43.909 - Migrain e, unspecified, not intractable, without status migrainosus Patient Disposition: Home Condition: Stable Instructions: Antibiotic Form, Migraine Headache (ED), Acute Headache (ED) Additional Instructions: Continue Tylenol and ibuprofen as needed for pain. Utilize Zofran as needed for further nausea. Get plenty of rest. Stay well hydrated. Recommend low light/ low stimulus environment, limiting screen time. Follow-up with your primary care doctor for further evaluation if needed. Return to the ED if you experience worsening or severe pain, severe dizziness, passing out, vision changes, unable to keep down food or drink, or any other symptoms of concern. Patient Language: Portuguese Prescriptions: New ondansetron 4 mg tablet,disintegrating 4 mg PO Q8H PRN (Reason: nausea and vomiting) Qty: 15 0RF No Action sulfamethoxazole-trimethoprim 800-160 mg tablet 1 tablet PO Q12H 7 Days Qty: 14 0RF drospirenone-ethinyl estradiol [Carmelita (28)] 3-0.02 mg tablet 1 tablet PO DAILY Follow-up/Referrals: Bravo,RANDELL Nava [Primary Care Provider] Stand Alone Forms: Work/School Release IP Time of Disposition: 12:39
[2025-02-22] MEDS: KETOROLAC 30 MG/ML VIAL (*BKC) IV PUSH (10:37)
[2025-02-22] MEDS: METOCLOPRAMIDE HCL INJ 10 MG/2 ML VIAL IV PUSH (10:37)
[2025-02-22] MEDS: ACETAMINOPHEN 500 MG TABLET 1000 MG PO (10:38)
[2025-02-22] MEDS: dexAMETHasone SOD PHOS INJ 10 MG/ML 1 ML VIAL IV PUSH (10:38)
[2025-02-22 11:06] LABS: Influenza A QL RT-PCR Negative (Negative); Influenza B QL RT-PCR Negative (Negative); RSV RNA, RT-PCR Negative (Negative); SARS-CoV-2 RNA PCR Negative (Negative)
--- OUTSIDE RECORDS SUMMARY | 2025-02-22 12:28 | XMS_ITS | Clinical Summary ---
Author Organization [facility] Care Team Providers Care Head Neck Surgeon Name Role Phone Unavailable Primary Care Provider [...]
--- OUTSIDE RECORDS SUMMARY | 2025-02-22 12:28 | XMS_ITS | Clinical Summary ---
Author Organization [facility] [employer] Address [address] [place] [address] Care Team Providers Care Tankroom Worker Name Role Phone Brandy Cordon DCS ENGINEER-DIESEL LOCOMOTIVE FIRER Primary Care Pro vider Source Comments [facility],non-owned Affiliates and Associated Physician Practices is amultiple site organization consisting of ambulatory clinics and hospital sitesin [place], [place], [place] and [place]. This disclosure is being madepursuant to the Care Everywhere program and may not contain all information available regarding this patient. Last updated 18.[facility] [employer] Allergies No known active allergies Medications * [...] 02/09/2025 Refill [facility] - Dermatology [address] [place] [phone] Juliana Blankenship MD MEDICATION REFILL 02/06/2025 Refill [facility] [address] [place] [phone] Juliana Blankenship MD MEDICATION REFILL from Last 3 Months Immunizations Immunization Administration Dates Next Due INFLUENZA VACCINE 04/06/2021 Social History Tobacco Use Types Packs/Day Years Used Date Smoking Tobacco: Never Smokeless Tobacco: Never Tobacco Cessation:Counseling Given: Not Answered Comments Unknown Sex and Gender Information Value Date Recorded Sex Assigned at Female 09/04/2021 12:33 PM CDT 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
== END 2025-02-22 12:44 | disposition home or self-care (01) ==
LOC: ANHED 10:42
PROVIDERS: Emergency Provider Physician Assistant; PCP Registered Nurse
DX: G43.909 Migraine, unspecified, not intractable, without status migrainosus (principal); Z20.822 Contact with and (suspected) exposure to COVID-19; E66.01 Morbid (severe) obesity due to excess calories; Z68.42 Body mass index [BMI] 45.0-49.9, adult
CPT/HCPCS: 70450; 81025; 87637; 96361; 96374; 96375; 99284; A9270; J1100; J1200; J1885; J2765; J7030

== ENCOUNTER 2025-02-25 08:29 | Emergency (ER) | payer OTHER, SELFPAY ==
[2025-02-25 08:36] VITALS: BP 128/90; PULSE 97; RESP 18; TEMP 36.7; O2SAT 100
--- NOTE | 2025-02-25 08:46 | ED_ITS ---
HPI - Headache General Chief Complaint: Headache Stated Complaint: Headache Time Seen by Provider: 02/25/25 08:46 Source: patient Mode of arrival: ambulatory Limitations: no limitations History of Present Illness HPI Narrative: 24 yo F presents with c/o headache. +photophobia (has lights off in exam room). Denies N/V. No URI symptoms. No neuro deficits. Was seen in ER for headache and had normal head CT. Was told to follow up with her PCP but has not. Was told to take ibuprofen and tylenol but has been alternating midol and excedrin. prescribed zofran but states hasn't needed to take it because no nausea. Pt is ambulatory with steady gait. Smiling and talking during exam. 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 He told her to talk with a neurologist who she states she did and he told her that we should call him to discuss medications to be prescribed to break the pain cycle. This is not he patients neurologist and he has not examined her. She does not have a neurologist nor made an appt with one. All systems reviewed and negative except as noted above. Related Data Home Medications ?Medication ?Instructions ?Recorded ?Confirmed ?Last Taken ?Type drospirenone 3 mg-ethinyl 1 tablet PO DAILY 04/26/23 1 Unknown History estradiol 0.02 mg tablet (Carmelita (28)) Allergies Allergy/AdvReac Type Severity Reaction Status Date / Time No Known Allergies Allergy Verified 02/25/25 09:13 [facility] Past Medical History Medical History Obesity, morbid, BMI 40.0-49.9 RUQ pain Obese body habitus Elevated liver enzymes Epigastric pain Irregular menses Acne Surgical History Surgical History History of myringotomy History of adenoidectomy History of tonsillectomy Social History Social History Smoking status: Never smoker Alcohol intake: never Substance use: never Substance use type: does not use Living arrangements: with family Gender identity (if verbalized by the patient): Female Spiritual care concerns: No Comments At time of signature, agree with nursing past medical, surgical, social and family history. There is no relevant family history pertinent to the presenting complaint. Exam Narrative: GENERAL: This is a well-nourished, well-developed patient, in no apparent distress. HEAD: normocephalic, atraumatic. EYES: PERRL. Sclera clear/white. Vision is grossly intact. Extraocular motions intact EARS: External ears normal, auditory canals clear and without drainage, TMs normal without perforation. Hearing grossly intact. NOSE: External nose normal with no obvious nasal discharge, nares without redness, no rhinorrhea. THROAT: Mucous membranes moist, posterior pharynx clear. NECK: Neck supple, non-tender without lymphadenopathy, masses or thyromegaly. CARDIOVASCULAR: Regular rate and rhythm without murmurs, gallops, or rubs. RESPIRATORY: Clear to auscultation. Breath sounds equal bilaterally. No wheezes, rales, or rhonchi. SKIN: warm, Dry, intact with no suspicious lesions or rash, good texture and turgor. NEURO: awake, alert, and oriented to person, place and time. There were no obvious focal neurologic abnormalities. EXTREMITIES: No joint tenderness, effusion, or edema noted. bilateral upper and lower extremity strength 5/5. Course Course Level of Care: Express Care Visit Vital Signs Vital signs: Vital Signs Temperature 36.7 C 02/25/25 08:36 Pulse Rate 97 02/25/25 08:36 Respiratory Rate 18 02/25/25 08:36 Blood Pressure 128/90 02/25/25 08:36 Pulse Oximetry 100 02/25/25 08:36 Oxygen Delivery Room Air 02/25/25 08:36 Temperature 36.7 C 02/25/25 08:36 Pulse Rate 97 02/25/25 08:36 Respiratory Rate 18 02/25/25 08:36 Blood Pressure 128/90 02/25/25 08:36 Pulse Oximetry 100 02/25/25 08:36 Oxygen Delivery Room Air 02/25/25 08:36 Reviewed MDM - Headache MDM Narrative Medical decision making narrative: patient is well-appearing, nontoxic. No neuro deficits. no pain distress noted. i spoke with the medical front desk specialist at the neurology office. 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 the animal services officer also called back stating no neurologist in office today. I was recommended that she get referral from her PCP faxed to office and then they will schedule an appointment for her. I explained this to the pt. i recommended she go to the ER for any worsening of her symptoms. her mother was hostile stating that we are treating them like drug seekers even though i discussed multiple medications with them that we would not prescribe such as maintenance meds for migraines, such a propranolol, or emergency migraines meds such as imitrex. i explained that it is better to be evaluated by neurologist or her PCP prior to starting these meds and they can monitor her on these medications. she has no migraine hx or diagnosis. she has already been evaluated in ER and had neg head CT. Differential Diagnosis Differential diagnosis: Likely migraine, tension headache, headache and sinusitis Discharge Plan Discharge Clinical Impression: Headache Patient Disposition: Home Condition: Stable Instructions: Acute Headache (ED) Additional Instructions: You were given intramuscular toradol today. Do not take any additional ibuprofen for the next 8 hours. Take zofran for nausea that was prescribed for you in the ER. Drink at least 64 ounces of water a day. I called the neurology office for you today and they need your primary care physician to fax a referral before they can make an appointment for you to see the neurologist. Patient Language: Barbadian Prescriptions: No Action drospirenone-ethinyl estradiol [Carmelita (28)] 3-0.02 mg tablet 1 tablet PO DAILY ondansetron 4 mg tablet,disintegrating 4 mg PO Q8H PRN (Reason: nausea and vomiting) Qty: 15 0RF Follow-up/Referrals: Bravo,RANDELL Nava [Primary Care Provider] Cheyanne Bhatti MD [Physician, Neurology] Referral Note: schedule follow up appointment Stand Alone Forms: Work/School Release IP Time of Disposition: 09:47
[2025-02-25] MEDS: KETOROLAC (*BKC) 60 MG/2 ML VIAL IM (09:17)
== END 2025-02-25 10:13 | disposition home or self-care (01) ==
PROVIDERS: Emergency Provider Nurse Practitioner Family; PCP Registered Nurse
DX: R51.9 Headache, unspecified (principal); E66.01 Morbid (severe) obesity due to excess calories; Z68.41 Body mass index [BMI] 40.0-44.9, adult
CPT/HCPCS: 96372; 99213; G0463; J1885

== ENCOUNTER 2025-02-28 19:32 | Emergency (ER) | payer OTHER, SELFPAY ==
[2025-02-28 19:45] VITALS: BP 133/92; PULSE 122; RESP 17; TEMP 36.7; O2SAT 100
[2025-02-28 21:39] VITALS: BP 124/74; PULSE 104; RESP 23; O2SAT 100
--- NOTE | 2025-02-28 21:59 | ED.HA ---
HPI - Headache General Chief Complaint: Headache Stated Complaint: migraine x 1 week Time Seen by Provider: 02/28/25 21:28 History of Present Illness HPI Narrative: Patient is a 24-year-old female who presents to the ER with complaints of a 1 week long headache. She reports she was here approximately 1 week ago with similar symptoms. Patient reports they did a head CT scan and it was negative. She reports she was given a migraine cocktail here and it provided her with temporary relief, but her symptoms have returned. Patient denies any other medical history relevant to this ER visit, although she does reports she recently stopped taking control. She endorses intermittent vomiting related to her head pain, photophobia, and nausea in the mornings. Patient denies any numbness/tingling, visual changes, sore throat, or respiratory issues. Related Data Home Medications ?Medication ?Instructions ?Recorded ?Confirmed ?Last Taken ?Type drospirenone 3 mg-ethinyl 1 tablet PO DAILY 04/26/23 04/02/24 Unknown History estradiol 0.02 mg tablet (Carmelita (28)) Allergies Allergy/AdvReac Type Severity Reaction Status Date / Time No Known Allergies Allergy Verified 02/28/25 19:45 Review of Systems Review of Systems: All systems reviewed & are unremarkable except as noted in HPI and below PMFSH Past Medical History Medical History Obesity, morbid, BMI 40.0-49.9 RUQ pain Obese body habitus Elevated liver enzymes Epigastric pain Irregular menses Acne Surgical History Surgical History History of myringotomy History of adenoidectomy History of tonsillectomy Social History Social History Smoking status: Never smoker Alcohol intake: never Substance use: never Substance use type: does not use Living arrangements: with family Gender identity (if verbalized by the patient): Female Spiritual care concerns: No Exam Narrative: GENERAL: Well appearing, obese, non-toxic, in no acute distress. HEAD: Normocephalic, atraumatic. NECK: Supple. No adenopathy, no masses. RESPIRATORY: Airway patent, respirations nonlabored. Clear to auscultation bilaterally, no rales, rhonchi, wheezing. Intermittent tachypnea. CARDIOVASCULAR: Tachycardia without murmurs, rubs, or gallops. Peripheral pulses 2+ and equal bilaterally. ABDOMINAL: Soft, nontender, nondistended, no hepatosplenomegaly. Normoactive BS. MUSCULOSKELETAL: Moves all extremities. Strength/ROM intact without gross deformities. SKIN: Warm, dry, normal color. No rashes. NEURO: A&O X3. Speech clear. Cranial nerves II-XII intact. No ataxic movements. PSYCHIATRIC: Appropriate mood and affect. Normal interaction. Course Vital Signs Vital signs: Vital Signs Temperature 36.7 C 02/28/25 19:45 Pulse Rate 122 H 02/28/25 19:45 Respiratory Rate 17 02/28/25 19:45 Blood Pressure 133/92 H 02/28/25 19:45 Pulse Oximetry 100 02/28/25 19:45 Oxygen Delivery Room Air 02/28/25 19:45 Temperature 36.7 C 02/28/25 19:45 Pulse Rate 104 H 02/28/25 21:39 Respiratory Rate 23 H 02/28/25 21:39 Blood Pressure 124/74 02/28/25 21:39 Pulse Oximetry 100 02/28/25 21:39 Oxygen Delivery Room Air 02/28/25 19:45 MDM - Headache MDM Narrative Medical decision making narrative: Patient is a 24-year-old female who presents to the ER with complaints of a 1 week long headache. She reports she was here approximately 1 week ago with similar symptoms. Patient reports they did a head CT scan and it was negative. She reports she was given a migraine cocktail here and it provided her with temporary relief, but her symptoms have returned. Patient denies any other medical history relevant to this ER visit, although she does reports she recently stopped taking control. She endorses intermittent vomiting related to her head pain, photophobia, and nausea in the mornings. Patient denies any numbness/tingling, visual changes, sore throat, or respiratory issues. Labs Ordered: CBC, CMP, COVID/flu/RSV, UA Imaging Ordered: None necessary (patient recently had a CT head scan) Medications Ordered: Benadryl 25 mg IV, Decadron 10 mg IV, 1 L normal saline IV bolus, Reglan 10 mg IV, magnesium 1 g IV, Toradol 15 mg IV Results: Patient's CBC indicates white blood cell count of 11.7. Her chemistry indicates a creatinine of 0.61 and ALT of 53. Patient's respiratory swab was negative. Diagnosis: Migraine headache Patient Education/Shared MDM: Results of lab work shared with patient. She endorses improvement of symptoms following medication administration. Patient strongly advised to maintain hydration status upon discharge and follow-up with her PCP as soon as possible for further evaluation. She will be discharged home with a prescription for Reglan and prednisone. Patient was also advised to take [id number] Tylenol, ibuprofen, and Benadryl as needed. Strict return precautions provided. Patient verbalized understanding and is in agreement with plan. Vital signs stable at time of discharge. All questions answered. Differential Diagnosis Differential diagnosis: Likely migraine, tension headache and headache Lab Data Attestation: I reviewed the patient's lab results. 02/28/25 22:09 02/28/25 22:09 Labs: Lab Results 02/28/25 Range/Units 22:09 WBC 11.7 H (4.5-10.0) K/mm3 RBC 4.20 (4.2-5.4) M/mm3 Hgb 12.5 (12.0-15.0) g/dL Hct 37.3 (37.0-47.0) % MCV 88.8 (80-100) fl MCH 29.8 (26-34) pg MCHC 33.5 (32-36) g/dl RDW 12.6 (11.5-14.5) % Plt Count 260 (150-375) k/mm3 MPV 10.0 (7.4-10.4) fl Immature Gran % (Auto) 0.5 (0-0.5) % Neut % (Auto) 59.4 (45.5-73.1) % Lymph % (Auto) 30.3 (18.3-44.2) % [place] % (Auto) 7.2 (2.6-8.5) % Eos % (Auto) 2.2 (0-4.4) % Baso % (Auto) 0.4 (0.2-1.2) % Lymph # (Auto) 3.55 H (0.9-3.2) K/mm3 [place] # (Auto) 0.8 H (0.1-0.6) K/mm3 Eos # (Auto) 0.3 (0-0.3) K/mm3 Baso # (Auto) 0.1 (0.0-0.1) K/mm3 Abs Immat Gran (auto) 0.06 H (0.00-0.031) K/mm3 Absolute Neuts (auto) 7.0 H (1.3-6.7) K/mm3 Absolute Nucleated RBC 0.000 (0.0-0.012) K/mm3 Nucleated RBC % 0.0 (0.0-0.2) % Sodium 139 (137-145) mmol/L Potassium 3.5 (3.4-5.0) mmol/L Chloride 107 (98-107) mmol/L Carbon Dioxide 23 (22-30) mmol/L Anion Gap 9 (4-12) mmol/L BUN 13 (7-17) mg/dL Creatinine 0.61 L (0.7-1.0) mg/dL Estim Creat Clear Calc 167 ml/min Estimated GFR > 60 (59 - ) Glucose 105 (65-110) mg/dL Calcium 8.9 (8.4-10.2) mg/dL Total Bilirubin 0.3 (0.2-1.3) mg/dL AST 35 (14-36) U/L ALT 53 H (6-35) U/L Alkaline Phosphatase 75 (38-126) U/L Total Protein 7.0 (6.3-8.2) g/dL Albumin 4.0 (3.5-5.1) g/dL Influenza A (RT-PCR) Negative (Negative) Influenza B (RT-PCR) Negative (Negative) RSV (RT-PCR) Negative (Negative) SARS-CoV-2 RNA (RT-PCR) Negative (Negative) Discharge Plan Discharge Clinical Impression: Migraine, History of sinus tachycardia, Headache Patient Disposition: Home Condition: Stable Instructions: Antibiotic Form, Migraine Headache (ED) Additional Instructions: Please return to the ER with any worsening symptoms. Follow-up with primary care provider as soon as possible for further evaluation. Take all medications as prescribed, including regularly scheduled medications. You may take [id number] Benadryl, Tylenol, and ibuprofen as needed for pain control in addition to your prescription medication. Patient Language: Malay Prescriptions: New metoclopramide HCl [Reglan] 10 mg tablet 10 mg PO Q6H PRN (Reason: nausea and vomiting) Qty: 30 0RF prednisone 50 mg tablet 50 mg PO DAILY Qty: 5 0RF No Action drospirenone-ethinyl estradiol [Carmelita (28)] 3-0.02 mg tablet 1 tablet PO DAILY ondansetron 4 mg tablet,disintegrating 4 mg PO Q8H PRN (Reason: nausea and vomiting) Qty: 15 0RF Follow-up/Referrals: Bravo,RANDELL Nava [Primary Care Provider] Stand Alone Forms: Work/School Release IP Time of Disposition: 00:18
[2025-02-28] MEDS: dexAMETHasone SOD PHOS INJ 10 MG/ML 1 ML VIAL IV PUSH (22:11)
[2025-02-28] MEDS: KETOROLAC 15 MG/ML VIAL (*BKC) IV PUSH (22:12)
[2025-02-28] MEDS: MAGNESIUM SULF 1 GM/D5W 100 ML 1 GM/100 ML BAG IVPB (22:12)
[2025-02-28] MEDS: METOCLOPRAMIDE HCL INJ 10 MG/2 ML VIAL IV PUSH (22:12)
[2025-02-28] MEDS: SODIUM CHLORIDE 0.9% IV 1,000 ML 999 ML IV CONT (22:13)
[2025-02-28 22:19] LABS: Hematocrit 37.3 % (37.0-47.0); Hemoglobin 12.5 g/dL (12.0-15.0); Immature Granulocyte Percent A 0.5 % (0-0.5); Lymphocytes Absolute Auto 3.55 K/mm3 (0.9-3.2); Mean Corpuscular HGB Conc 33.5 g/dl (32-36); Mean Corpuscular Hemoglobin 29.8 pg (26-34); Mean Corpuscular Volume 88.8 fl (80-100); Nucleated Red Blood Cells Absolute Auto 0.000 K/mm3 (0.0-0.012); Nucleated Red Blood Cells Perc 0.0 % (0.0-0.2); Platelet Count Result 260 k/mm3 (150-375); Red Blood Count 4.20 M/mm3 (4.2-5.4); White Blood Count 11.7 K/mm3 (4.5-10.0)
[2025-02-28 22:27] LABS: Alanine Aminotransferase 53 U/L (6-35); Albumin Level 4.0 g/dL (3.5-5.1); Alkaline Phosphatase 75 U/L (38-126); Anion Gap 9 mmol/L (4-12); Aspartate Amino Transferase 35 U/L (14-36); Bilirubin,Total 0.3 mg/dL (0.2-1.3); Blood Urea Nitrogen 13 mg/dL (7-17); Calcium 8.9 mg/dL (8.4-10.2); Carbon Dioxide 23 mmol/L (22-30); Chloride 107 mmol/L (98-107); Estimated CRCL calculation 167 ml/min; Estimated Glomerular Filt Rate > 60; Glucose 105 mg/dL (65-110); Potassium 3.5 mmol/L (3.4-5.0); Sodium 139 mmol/L (137-145); Total Protein 7.0 g/dL (6.3-8.2)
[2025-02-28 22:53] LABS: Influenza A QL RT-PCR Negative (Negative); Influenza B QL RT-PCR Negative (Negative); RSV RNA, RT-PCR Negative (Negative); SARS-CoV-2 RNA PCR Negative (Negative)
[2025-03-01 00:24] VITALS: BP 119/79; PULSE 98; RESP 20; O2SAT 100
== END 2025-03-01 00:28 | disposition home or self-care (01) ==
PROVIDERS: Emergency Provider Registered Nurse; PCP Registered Nurse
DX: G43.909 Migraine, unspecified, not intractable, without status migrainosus (principal); Z20.822 Contact with and (suspected) exposure to COVID-19
CPT/HCPCS: 36415; 80053; 85025; 87637; 96365; 96375; 99284; J1100; J1200; J1885; J2765; J3475; J7030